=== PATIENT | female | born 1955 | race African-American/Black ===

== ENCOUNTER 2016-12-20 16:46 | Emergency (ER) | payer MEDICARE, MEDICAID ==
[~2016-12-20] VITALS: Ht 154.9 cm; Wt 68.0 kg
[2016-12-20] MEDS ORDERED: HYDR25TA PO (16:55)
[2016-12-20] MEDS ORDERED: CLON0.2T PO (16:55)
[2016-12-20] MEDS ORDERED: TETANUS, DIPHTHERIA, PERTUSSIS VAC/PF 0.5ML (>7YR OLD) IM ONE (20:15)
[2016-12-20] MEDS ORDERED: IBUPROFEN 800MG TABLET PO ONE (20:15)
[2016-12-20] MEDS ORDERED: BACITRACIN ZINC OINT UDPKT TOP ONE (21:30)
[2016-12-20 23:51] VITALS: BP 170/66
== END 2016-12-20 23:59 | disposition home or self-care (01) ==
LOC: ER 17:33
DX: S82.141A Displaced bicondylar fracture of right tibia, initial encounter for closed fracture (principal); W10.9XXA Fall (on) (from) unspecified stairs and steps, initial encounter; Y93.89 Activity, other specified; Y92.89 Other specified places as the place of occurrence of the external cause; Z23 Encounter for immunization; I10 Essential (primary) hypertension
CPT/HCPCS: 73562; 90715; 99284; L1830

== ENCOUNTER 2017-09-19 14:57 | Emergency (ER) | payer MEDICAID, MEDICARE ==
[~2017-09-19] VITALS: Ht 154.9 cm; Wt 59.0 kg
[~2017-09-19 14:57] MED LIST: CLON0.2T PO; HYDR25TA PO
[2017-09-19 15:57] VITALS: BP 183/79
== END 2017-09-19 19:30 | disposition left against medical advice (07) ==
LOC: ER 18:34
DX: R25.2 Cramp and spasm (principal); Z53.21 Procedure and treatment not carried out due to patient leaving prior to being seen by health care provider

== ENCOUNTER 2018-08-22 01:10 | Inpatient (IN) | payer MEDICARE, OTHER ==
[~2018-08-22] VITALS: Ht 154.9 cm; Wt 70.3 kg
[~2018-08-22 01:10] MED LIST changes: +CLONIDINE PATCH; +QUETIAPINE PO
[2018-08-22] MEDS ORDERED: ASPIRIN 81MG TABLET PO ONE (03:30)
[2018-08-22] MEDS ORDERED: NITROGLYCERIN OINT 1GM/INCH UDPKT TD ONE (03:30)
[2018-08-22 04:10] LABS: EOSINOPHILS % 5.9 % (0.0-5.0); HEMATOCRIT. 38.1 % (36.0-48.0); HEMOGLOBIN. 12.8 g/dL (12.0-16.0); MEAN CORPUSCULAR HEMOGLOBIN 28.7 pg (28.0-32.0); MEAN CORPUSCULAR VOLUME 85.3 fL (81.0-99.0); MEAN PLATELET VOLUME 9.6 fl (7.4-10.4); MONOCYTES % 9.3 % (2.0-8.0); NEUTROPHILS % 44.8 % (40.0-76.0); PLATELET 187 x1000/uL (130-400); RED BLOOD CELL COUNT 4.46 mill/uL (4.2-5.4)
[2018-08-22 04:16] LABS: CHLORIDE 99 mEq/L (98-107)
[2018-08-22 08:45] VITALS: BP 152/68
[2018-08-22] MEDS ORDERED: CLONIDINE 0.1MG TABLET PO PRN (09:15)
[2018-08-22] MEDS ORDERED: GUAIFENESIN 200MG/10ML SUGAR FREE UDC PO PRN (09:15)
[2018-08-22] MEDS ORDERED: IPRATROPIUM/ALBUTEROL 0.5-3(2.5)MG/3ML NEB INH PRN (09:15)
[2018-08-22] MEDS ORDERED: ONDANSETRON HCL 4MG/2ML INJ IV PRN (09:15)
[2018-08-22] MEDS ORDERED: MAGNESIUM/ALUMINUM HYDROXIDE/SIMETHICONE 30ML UDC PO PRN (09:15)
[2018-08-22] MEDS ORDERED: ACETAMINOPHEN 325MG TABLET PO PRN (09:15)
[2018-08-22] MEDS ORDERED: POTASSIUM CHLORIDE 20MEQ TABLET SR PO NR ×2 (09:15→14:00)
[2018-08-22] MEDS ORDERED: HYDROCODONE/ACETAMINOPHEN 5/325MG TABLET PO PRN (09:15)
[2018-08-22] MEDS ORDERED: DOCUSATE SODIUM 100MG CAPSULE PO PRN (09:15)
[2018-08-22 09:50] VITALS: BP 152/68
[2018-08-22 09:56] LABS: PHOSPHORUS 4.1 mg/dL (2.5-4.9)
[2018-08-22] MEDS ORDERED: KCL 20MEQ/100ML PREMIX 100 ML IV NR (10:00)
[2018-08-22] MEDS: ENOXAPARIN 40MG/0.4ML SYR SUBCUT SCH (10:27)
[2018-08-22 12:00] VITALS: BP 119/57
[2018-08-22] MEDS ORDERED: QUET25TA34 MT (15:07)
[2018-08-22] MEDS ORDERED: CLON1PAT11 TP (15:07)
[2018-08-22] MEDS ORDERED: HYDR25TA PO (15:07)
[2018-08-22 15:18] LABS: CREATINE KINASE MB FRACTION 2.4 ng/mL (0.5-3.6)
[2018-08-22 16:00] VITALS: BP 120/57
[2018-08-22] MEDS ORDERED: AMLODIPINE 5MG TABLET PO SCH (17:00)
[2018-08-22] MEDS: ASPIRIN 325MG EC TABLET PO SCH (17:40)
[2018-08-22] MEDS: CLONIDINE 0.1MG TABLET PO SCH ×2 (17:41→21:24)
[2018-08-22 20:00] VITALS: BP 109/50
[2018-08-22] MEDS ORDERED: DEXTROSE 50% WATER 50ML SYRINGE IV PRN ×2 (23:30→23:45)
[2018-08-22 23:56] LABS: CREATINE KINASE MB FRACTION 1.7 ng/mL (0.5-3.6)
[2018-08-23] VITALS: BP 132/65
[2018-08-23 04:00] VITALS: BP 152/71
[2018-08-23] MEDS: CLONIDINE 0.1MG TABLET PO SCH (06:02)
[2018-08-23 06:17] LABS: BASOPHILS % 0.6 % (0.0-2.0); EOSINOPHILS % 5.9 % (0.0-5.0); HEMATOCRIT. 37.5 % (36.0-48.0); HEMOGLOBIN. 12.3 g/dL (12.0-16.0); LYMPHOCYTES % 34.4 % (20.0-50.0); MEAN CORPUSCULAR HEMOGLOBIN 28.1 pg (28.0-32.0); MEAN CORPUSCULAR VOLUME 85.5 fL (81.0-99.0); MEAN PLATELET VOLUME 9.8 fl (7.4-10.4); NEUTROPHILS % 50.1 % (40.0-76.0); PLATELET 181 x1000/uL (130-400); RED BLOOD CELL COUNT 4.38 mill/uL (4.2-5.4); RED CELL DISTRIBUTION WIDTH 14.2 % (11.6-14.6)
[2018-08-23] MEDS: BLOOD SUGAR DIAGNOSTIC STRIP TEST SCH ×2 (06:21→11:58)
[2018-08-23 06:25] LABS: CHLORIDE 106 mEq/L (98-107)
[2018-08-23 06:32] LABS: LDL CHOLESTEROL 134 mg/dL (5-100)
[2018-08-23 06:33] LABS: HDL CHOLESTEROL 52 mg/dL (40-59)
[2018-08-23] MEDS ORDERED: BLOOD SUGAR DIAGNOSTIC STRIP TEST SCH (07:20)
[2018-08-23 08:00] VITALS: BP 121/59
[2018-08-23] MEDS: INSULIN LISPRO 100 UNITS/ML SUBCUT SCH ×2 (08:08→12:02)
[2018-08-23] MEDS: ASPIRIN 325MG EC TABLET PO SCH (08:08)
[2018-08-23] MEDS: ENOXAPARIN 40MG/0.4ML SYR SUBCUT SCH ×2 (08:09→08:15)
[2018-08-23] MEDS ORDERED: PANTOPRAZOLE 40MG DR TABLET PO SCH (11:21)
[2018-08-23 12:28] VITALS: BP 132/82
[2018-08-23] MEDS ORDERED: PROT40 MT (12:42)
[2018-08-23 13:21] VITALS: BP 132/78
[2018-08-23] MEDS ORDERED: ATORVASTATIN CALCIUM 10MG TABLET PO SCH (21:00)
== END 2018-08-23 15:07 | disposition home or self-care (01) | DRG 206 ==
LOC: ER 01:10 → 6WST 05:00 → EDBEDREQ 05:02 → EDBEDREQTM 05:02 → ENRESERV 07:38
PROVIDERS: ADMIT Internal Medicine; ATTEND Internal Medicine
DX: M94.0 Chondrocostal junction syndrome [Tietze] (principal); E87.6 Hypokalemia; K21.9 Gastro-esophageal reflux disease without esophagitis; R00.1 Bradycardia, unspecified; I10 Essential (primary) hypertension; Z88.8 Allergy status to other drugs, medicaments and biological substances; Z79.899 Other long term (current) drug therapy
CPT/HCPCS: 36415; 71045; 80061; 82550; 82553; 82962; 83036; 83735; 83880; 84100; 84443; 84484; 85379; 93005; 93306; 93970; 96374; 96375; 97161; 99285; C1893; J1650; J1815; J3480; J7050

== ENCOUNTER 2020-06-01 07:30 | Emergency (ER) | payer MEDICARE, OTHER ==
[~2020-06-01] VITALS: Ht 154.9 cm; Wt 64.0 kg
[~2020-06-01 07:30] MED LIST changes: -CLON0.2T PO; +CLON1PAT11 TP; -CLONIDINE PATCH; +HYDR25TA; +PROT40 MT; +QUET25TA34 MT; -QUETIAPINE PO
[2020-06-01 07:34] VITALS: BP 222/85
[2020-06-01] MEDS ORDERED: CLON1PAT11 TP (08:23)
== END 2020-06-01 08:45 | disposition home or self-care (01) ==
LOC: ER 07:30
DX: M25.511 Pain in right shoulder (principal); M54.2 Cervicalgia; I10 Essential (primary) hypertension; Z79.899 Other long term (current) drug therapy
CPT/HCPCS: 99283

== ENCOUNTER 2023-08-26 18:52 | Emergency (ER) | payer BC, MEDICAID ==
[~2023-08-26] VITALS: Ht 175.3 cm; Wt 77.0 kg
[~2023-08-26 18:52] MED LIST changes: -QUET25TA34 MT; +QUET25TA36 MT
[2023-08-26 19:02] VITALS: O2SAT 98
[2023-08-26 20:54] VITALS: BP 146/76; PULSE 89; RESP 16; TEMP 98.2
[2023-08-26] MEDS: IBUPROFEN 600MG TABLET PO ONE (20:54)
== END 2023-08-26 20:56 | disposition home or self-care (01) ==
LOC: ER 18:52
DX: M25.532 Pain in left wrist (principal); E11.9 Type 2 diabetes mellitus without complications; I10 Essential (primary) hypertension; Z88.8 Allergy status to other drugs, medicaments and biological substances
CPT/HCPCS: 73110; 99283